=== PATIENT | male | born 1995 | race Caucasian/White ===

== ENCOUNTER 2020-04-18 23:55 | Emergency (ER) | payer SELFPAY ==
[~2020-04-18] VITALS: Ht 185.4 cm; Wt 97.5 kg
[2020-04-19] VITALS: BP_SYST 140
--- NOTE | 2020-04-19 | NUR ---
Patient to ER CHAIR to gown for evaluation. Side rails up.
--- NOTE | 2020-04-19 00:02 | NUR ---
ER at bedside examining patient.
--- NOTE | 2020-04-19 00:21 | NUR ---
Patient given written and verbal discharge instructions and verbalizes understanding. ER MD discussed with patient the results and treatment provided. Patient in stable condition. ID arm band removed. NO Rx of given. Patient educated on pain management and to follow up with PMD. Pain Scale . Opportunity for questions provided and answered. Medication side effect fact sheet provided.
[2020-04-19 00:22] VITALS: BP_SYST 135
== END 2020-04-19 00:27 ==
LOC: SED 23:55
DX: Z02.89 Encounter for other administrative examinations (principal); J45.909 Unspecified asthma, uncomplicated
CPT/HCPCS: 99283